=== PATIENT | female | born 1965 | race Caucasian/White ===

== ENCOUNTER 2018-11-23 15:48 | Emergency (ER) | payer OTHER ==
[2018-11-23 15:54] VITALS: BP 181/116
[2018-11-23] MEDS ORDERED: Bacitracin/Neomycin/Polymyxin B Oint 0.9 GM U/D Packet TOP ONE (16:59)
--- NOTE | 2018-11-23 17:08 | EDM.PDOC ---
ED HPI GENERAL MEDICAL PROBLEM - General Chief Complaint: Laceration Stated Complaint: right hand laceration Time Seen by Provider: 11/23/18 15:48 Source of Information: Reports: Patient History Limitations: Reports: No Limitations - History of Present Illness INITIAL COMMENTS - FREE TEXT/NARRATIVE: Patient is a 52-year-old female who was brought in by her with laceration of the right hand palmar area on the foot fifth metatarsal semicircular about 2 cm superficial Onset: Sudden Duration: Hour(s): Location: Reports: Upper Extremity, Right Quality: Reports: Ache Severity: Mild Improves with: Reports: None Worsens with: Reports: None 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 right palm Pain Score (Numeric/FACES): 7 - Related Data Allergies Allergy/AdvReac Type Severity Reaction Status Date / Time meperidine Allergy Nausea and Verified 11/23/18 16:28 Vomiting NSAIDS (Non-Steroidal Allergy Other Verified 11/23/18 16:28 Anti-Inflamma Home Meds: Home Meds Ascorbic Acid [Vitamin C] 500 units PO TID 07/12/16 [History] Biotin 1 tab PO TID 07/12/16 [History] Ca Carbonate/Vitamin D3/Vit K [Calcium + D Soft Chewable Tab] 1 tab PO TID 07/12 [History] Cyanocobalamin (Vitamin B-12) [B-12] 1,000 mcg PO TID 07/12/16 [History] Multivitamin [Multi-Vitamin Daily] 1 tab PO DAILY 07/12/16 [History] Past Medical History HEENT History: Reports: Impaired Vision, Other (See Below) Other HEENT History: Wears glasses Cardiovascular History: Reports: Heart Failure, Heart Murmur, High Cholesterol, Hypertension, Other (See Below) Other Cardiovascular History: Cardiac myopathy/CHF with 2001, benign functional murmur, preeclampsia x8, varicose veins Respiratory History: Reports: Intubation, Previous Gastrointestinal History: Reports: Gastritis, GERD, GI Bleed, Hiatal Hernia, PUD , Other (See Below) Other Gastrointestinal History: History of peptic ulcer disease and upper GI bleed with no transfusions Genitourinary History: Reports: None 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: Other (See Below) 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 History: Menopause at age 49, normal spontaneous vaginal deliveries however 2 deliveries at 34 weeks gestation secondary to preeclampsia Musculoskeletal History: Reports: Arthritis, Back Pain, Chronic, Fracture, Neck Pain, Chronic, Osteoarthritis, Other (See Below) Other Musculoskeletal History: Right foot fractures of digits #1 through 5 at about age 32 Neurological History: Reports: Concussion, Headaches, Chronic, Head Trauma, Migraines, Other (See Below) Other Neuro History: Head concussion in about 2005 Psychiatric History: Reports: None Endocrine/Metabolic History: Reports: Obesity/BMI 30+ Hematologic History: Reports: None Immunologic History: Reports: None Dermatologic History: Reports: None - Infectious Disease History Infectious Disease History: Reports: Chicken Pox - Past Surgical History Head Surgeries/Procedures: Reports: None HEENT Surgical History: Reports: Oral Surgery, Other (See Below) GI Surgical History: Reports: Bariatric Procedure, EGD, Other (See Below) Female Surgical History: Reports: None Endocrine Surgical History: Reports: None Oncologic Surgical History: Reports: None Dermatological Surgical History: Reports: None - Past Imaging History Past Imaging History: Reports: Angiography (Heart catheterization in about 1997) Social & Family History - Tobacco Use Smoking Status *Q: Unknown Ever Smoked - Caffeine Use Caffeine Use: Reports: Coffee, Tea - Recreational Drug Use Recreational Drug Use: No - Living Situation & Occupation Living situation: Reports: , Occupation: Employed ED ROS GENERAL - Review of Systems Review Of Systems: See Below Constitutional: Reports: No Symptoms HEENT: Reports: No Symptoms Respiratory: Reports: No Symptoms Cardiovascular: Reports: No Symptoms Endocrine: Reports: No Symptoms GI/Abdominal: Reports: No Symptoms : Reports: No Symptoms Musculoskeletal: Reports: No Symptoms Skin: Reports: No Symptoms Neurological: Reports: No Symptoms Psychiatric: Reports: No Symptoms Hematologic/Lymphatic: Reports: No Symptoms Immunologic: Reports: No Symptoms ED EXAM, SKIN/RASH Exam: See Below Exam Limited By: No Limitations General Appearance: Alert, WD/WN, No Apparent Distress Ears: Normal External Exam, Normal Canal, Hearing Grossly Normal, Normal TMs Nose: Normal Inspection, Normal Mucosa, No Blood Throat/Mouth: Normal Inspection, Normal Lips, Normal Teeth, Normal Gums, Normal Oropharynx, Normal Voice, No Airway Compromise Head: Atraumatic, Normocephalic Neck: Normal Inspection, Supple, Non-Tender, Full Range of Motion Respiratory/Chest: No Respiratory Distress, Lungs Clear, Normal Breath Sounds, No Accessory Muscle Use, Chest Non-Tender Cardiovascular: Normal Peripheral Pulses, Regular Rate, Rhythm, No Edema, No Gallop, No JVD, No Rub, Systolic Murmur GI/Abdominal: Normal Bowel Sounds, Soft, Non-Tender, No Organomegaly, No Distention, No Abnormal Bruit, No Mass (Female) Exam: Normal External Exam, Normal Speculum Exam, Normal Bimanual Exam Rectal (Female) Exam: Normal Exam, Normal Rectal Tone Back Exam: Normal Inspection, Full Range of Motion, NT Extremities: Normal Inspection, Normal Range of Motion, Non-Tender, No Pedal Edema, Normal Capillary Refill, Other (Laceration palmar aspect of hand 2 cm superficial) Neurological: Alert, Oriented, CN II-XII Intact, Normal Cognition, Normal Gait, Normal Reflexes, No Motor/Sensory Deficits Psychiatric: Normal Affect, Normal Mood Skin: Wound/Incision Location, Skin: Lower Extremity, Right Lymphatic: No Adenopathy ED SKIN PROCEDURES - Laceration/Wound Repair Right Distal Ventral Hand Appearance: Superficial Distal NVT: Neuro & Vascular Intact Local Anesthesia - Lidocaine (Xylocaine): 0.5% Plain, 1% Plain Local Anesthetic Volume: 5cc Skin Prep: Chlorhexidine (Hibiciens) Exploration/Debridement/Repair: In a Bloodless Field Closed with: Sutures Suture Size: 4-0 Suture Type: Nylon Course - Vital Signs Last Recorded V/S: Last Vital Signs Temp 97.4 F 11/23/18 15:49 Pulse 63 11/23/18 15:49 Resp 16 11/23/18 15:49 BP 181/116 H 11/23/18 15:49 Pulse Ox 100 11/23/18 15:49 - Orders/Labs/Meds Orders: Active Orders 24 hr Category Date Time Status Bacitracin/Neomycin/Polymyxin [Triple Antibiotic Oint] Med 11/23/18 16:59 Once 1 each TOP ONETIME ONE Meds: Medications Discontinued Medications Generic Name Dose Route Start Last Admin Trade Name Freq PRN Reason Stop Dose Admin Lidocaine HCl 5 ml 11/23/18 16:30 11/23/18 16:39 Xylocaine-Mpf 1% INJECT 11/23/18 16:31 5 ml ONETIME ONE Administration Departure - Departure Time of Disposition: 17:10 Disposition: Home, Self-Care 01 Condition: Fair Clinical Impression: Broken skin - Discharge Information *PRESCRIPTION DRUG MONITORING PROGRAM REVIEWED*: No *COPY OF PRESCRIPTION DRUG MONITORING REPORT IN PATIENT MATI: No Referrals: PCP,Unknown [Primary Care Provider] - Care Plan Goals: Return in 7 days for suture removal - My Orders Last 24 Hours: My Active Orders 11/23/18 16:59 Bacitracin/Neomycin/Polymyxin [Triple Antibiotic Oint] 1 each TOP ONETIME ONE - Assessment/Plan Last 24 Hours: My Active Orders 11/23/18 16:59 Bacitracin/Neomycin/Polymyxin [Triple Antibiotic Oint] 1 each TOP ONETIME ONE
[2018-11-23] MEDS ORDERED: Diphtheria,Pertussis(Acell),Tetanus Vaccine 0.5 ML SDV IM ONE (17:18)
== END 2018-11-23 17:30 | disposition home or self-care (01) ==
LOC: LL.ED 15:48
DX: S61.411A Laceration without foreign body of right hand, initial encounter (principal); I11.0 Hypertensive heart disease with heart failure; I50.9 Heart failure, unspecified; E78.00 Pure hypercholesterolemia, unspecified; Z88.8 Allergy status to other drugs, medicaments and biological substances; Z79.899 Other long term (current) drug therapy; Z23 Encounter for immunization; X58.XXXA Exposure to other specified factors, initial encounter
CPT/HCPCS: 12001; 90471; 90715; 99283; J2001

== ENCOUNTER 2024-05-10 18:37 | Emergency (ER) | payer BC, OTHER ==
[2024-05-10 18:41] VITALS: BP 161/111; PULSE 81
[2024-05-10] MEDS: Bacitracin Oint 1 GM U/D Packet TOP ONE (19:36)
[2024-05-10] MEDS: Lidocaine 1% 5 ML VIAL INJECT ONE (19:37)
== END 2024-05-10 20:10 | disposition home or self-care (01) ==
LOC: LL.ED 18:37
DX: S61.217A Laceration without foreign body of left little finger without damage to nail, initial encounter (principal); I11.0 Hypertensive heart disease with heart failure; I50.9 Heart failure, unspecified; K21.9 Gastro-esophageal reflux disease without esophagitis; Z88.8 Allergy status to other drugs, medicaments and biological substances; Z88.6 Allergy status to analgesic agent; Z88.7 Allergy status to serum and vaccine; Z79.85 Long-term (current) use of injectable non-insulin antidiabetic drugs; Z79.899 Other long term (current) drug therapy; E78.00 Pure hypercholesterolemia, unspecified; W25.XXXA Contact with sharp glass, initial encounter
CPT/HCPCS: 12001; 73140-F4; 99283; J3490